=== PATIENT | female | born 1955 | race African-American/Black ===

== ENCOUNTER 2018-11-11 11:00 | Inpatient (IN) | payer OTHER ==
[2018-11-11 13:28] LABS: ADD MAN DIFF? NO
[2018-11-11 13:38] LABS: BASOPHILS % 0.3 % (0.0-2.0); EOSINOPHILS # 0.1 10^3/ul (0.0-0.5); EOSINOPHILS % 0.5 % (0.0-7.0); HEMATOCRIT 35.8 % (37.0-47.0); HEMOGLOBIN 10.8 g/dl (12.0-16.0); LYMPHOCYTES # 2.2 10^3/ul (0.8-2.9); LYMPHOCYTES % 22.1 % (15.0-51.0); MEAN CORPUSCULAR HGB CONC 30.2 g/dl (32.0-37.0); MEAN CORPUSCULAR VOLUME 89.5 fl (82.0-101.0); MEAN PLATELET VOLUME 11.8 fl (7.4-10.4); MONOCYTE # 0.8 10^3/ul (0.3-0.9); MONOCYTES % 7.8 % (0.0-11.0); NEUTROPHIL # 6.9 10^3/ul (1.6-7.5); NEUTROPHILS % 68.9 % (39.0-77.0); PLATELET COUNT 229 10^3/UL (140-415); RED CELL DISTRIBUTION WIDTH 13.1 % (11.5-14.5)
[2018-11-11 15:51] LABS: POTASSIUM 7.3 mmol/L (3.5-5.1)
[2018-11-11 16:28] LABS: ANION GAP 7 (5-13); BLOOD UREA NITROGEN 36 mg/dl (7-20); CARBON DIOXIDE 21 mmol/L (21-31); CHLORIDE 113 mmol/L (97-110); CREATININE 1.48 mg/dl (0.44-1.00); Estimated GFR 43 mL/min (>60); GLUCOSE 85 mg/dl (70-220); POTASSIUM 7.3 mmol/L (3.5-5.1); SODIUM 141 mmol/L (135-144)
[2018-11-11 16:29] LABS: B-TYPE NATRIURETIC PEPTIDE 45 PG/ML (0-125); CALCIUM 12.8 mg/dl (8.4-10.2); TROPONIN-I < 0.012 ng/ml (0.000-0.120)
[2018-11-11] MEDS: DEXTROSE 50% 50 ML SYRINGE IV ×2 (16:29→19:39)
[2018-11-11] MEDS: NA BICARBONATE 8.4% 50 ML SYG IV ×2 (16:29→19:39)
[2018-11-11] MEDS: CA CHLORIDE 10% 10 ML SYRINGE IV (16:29)
[2018-11-11] MEDS: SODIUM POLYSTYRENE 15 GM KIT (POWDER + SORBITOL) PO (16:30)
[2018-11-11] MEDS: INSULIN REGULAR, HUMAN 100 UNIT/1 ML 3ML VIAL IVP ×2 (16:31→19:40)
[2018-11-11] MEDS: NA POLYST SULFON 15 GM/60 ML BTL PO ×2 (16:37→19:51)
[2018-11-11] MEDS: IODIXANOL LOCM 100 ML BTL (16:39)
[2018-11-11] MEDS: SOD CHLORIDE 0.9% 100 ML (16:39)
[2018-11-11 17:51] LABS: ANION GAP 6 (5-13); BLOOD UREA NITROGEN 36 mg/dl (7-20); CARBON DIOXIDE 24 mmol/L (21-31); CHLORIDE 113 mmol/L (97-110); Estimated GFR 43 mL/min (>60); GLUCOSE 54 mg/dl (70-220); SODIUM 143 mmol/L (135-144)
[2018-11-11 18:00] LABS: POTASSIUM 6.7 mmol/L (3.5-5.1)
[2018-11-11] MEDS ORDERED: DEXTROSE 50% 50 ML SYRINGE IV (19:00)
[2018-11-11] MEDS ORDERED: ACETAMINOPHEN 325 MG TAB PO ×2 (20:00→20:30)
[2018-11-11] MEDS ORDERED: ONDANSETRON 4 MG INJ IV (20:00)
[2018-11-11] MEDS: SOD CHLORIDE 0.9% 1,000 ML IV (20:00)
[2018-11-11] MEDS ORDERED: NACL 0.9% 3 ML SYG IV (20:30)
[2018-11-11] MEDS ORDERED: NITROGLYCERIN (SL) 0.4 MG TAB SL (20:30)
[2018-11-11] MEDS ORDERED: DOCUSATE SODIUM 100 MG CAP PO (20:30)
[2018-11-11] MEDS ORDERED: BISACODYL (EC) 5 MG TAB PO (20:30)
[2018-11-11 21:00] LABS: ADD UMIC NO; UR ASCORBIC ACID NEGATIVE (NEGATIVE); UR BILIRUBIN (Dip) NEGATIVE (NEGATIVE); UR BLOOD (Dip) NEGATIVE (NEGATIVE); UR CLARITY CLEAR (CLEAR); UR COLOR YELLOW (YELLOW); UR GLUCOSE (Dip) 1+ mg/dL (NEGATIVE); UR KETONES (Dip) NEGATIVE (NEGATIVE); UR LEUKOCYTE ESTERASE (Dip) NEGATIVE Leu/ul (NEGATIVE); UR NITRITE (Dip) NEGATIVE (NEGATIVE); UR SPECIFIC GRAVITY (Dip) 1.055 (1.003-1.030); UR TOTAL PROTEIN (Dip) NEGATIVE (NEGATIVE); UR UROBILINOGEN (Dip) NEGATIVE (NEGATIVE)
[2018-11-11 22:27] LABS: ANION GAP 11 (5-13); BLOOD UREA NITROGEN 39 mg/dl (7-20); CARBON DIOXIDE 19 mmol/L (21-31); CHLORIDE 116 mmol/L (97-110); CREATININE 1.65 mg/dl (0.44-1.00); Estimated GFR 38 mL/min (>60); GLUCOSE 143 mg/dl (70-220); POTASSIUM 5.4 mmol/L (3.5-5.1); SODIUM 146 mmol/L (135-144)
[2018-11-11 22:28] LABS: ALANINE AMINOTRANSFERASE 29 IU/L (13-69); ALBUMIN 4.4 g/dl (3.3-4.9); ALKALINE PHOSPHATASE 89 IU/L (42-121); ASPARTATE AMINO TRANSFERASE 35 IU/L (15-46); BILIRUBIN,INDIRECT 0.5 mg/dl (0-1.1); BILIRUBIN,TOTAL 0.5 mg/dl (0.2-1.3); LIPASE 140 U/L (23-300); TOTAL PROTEIN 8.1 g/dl (6.1-8.1)
[2018-11-11 22:34] LABS: CALCIUM 13.8 mg/dl (8.4-10.2)
[2018-11-12 01:06] LABS: ANION GAP 5 (5-13); BLOOD UREA NITROGEN 37 mg/dl (7-20); CALCIUM 12.9 mg/dl (8.4-10.2); CARBON DIOXIDE 22 mmol/L (21-31); CHLORIDE 116 mmol/L (97-110); CREATININE 1.59 mg/dl (0.44-1.00); Estimated GFR 40 mL/min (>60); GLUCOSE 126 mg/dl (70-220); POTASSIUM 5.8 mmol/L (3.5-5.1); SODIUM 143 mmol/L (135-144)
[2018-11-12 02:58] LABS: ANION GAP 7 (5-13); BLOOD UREA NITROGEN 40 mg/dl (7-20); CARBON DIOXIDE 22 mmol/L (21-31); CHLORIDE 115 mmol/L (97-110); CREATININE 1.57 mg/dl (0.44-1.00); Estimated GFR 41 mL/min (>60); GLUCOSE 104 mg/dl (70-220); SODIUM 144 mmol/L (135-144)
[2018-11-12 03:47] LABS: CALCIUM 13.1 mg/dl (8.4-10.2)
[2018-11-12] MEDS: SOD CHLORIDE 0.9% 1,000 ML IV ×4 (04:00→22:27)
[2018-11-12] MEDS: SODIUM POLYSTYRENE 15 GM KIT (POWDER + SORBITOL) PO (04:29)
[2018-11-12] MEDS: ALBUTEROL 0.083% (NEB) 2.5 MG/3 ML AMP HHN (04:38)
[2018-11-12] MEDS: CALCITONIN SALMON 400 UNITS INJ SC (04:40)
[2018-11-12 05:26] LABS: ADD MAN DIFF? NO
[2018-11-12 05:42] LABS: BASOPHILS % 0.3 % (0.0-2.0); EOSINOPHILS # 0.2 10^3/ul (0.0-0.5); EOSINOPHILS % 2.2 % (0.0-7.0); HEMATOCRIT 36.2 % (37.0-47.0); HEMOGLOBIN 11.2 g/dl (12.0-16.0); LYMPHOCYTES # 2.2 10^3/ul (0.8-2.9); LYMPHOCYTES % 27.9 % (15.0-51.0); MEAN CORPUSCULAR HEMOGLOBIN 27.5 pg (29.0-33.0); MEAN CORPUSCULAR HGB CONC 30.9 g/dl (32.0-37.0); MEAN CORPUSCULAR VOLUME 88.9 fl (82.0-101.0); MEAN PLATELET VOLUME 11.8 fl (7.4-10.4); MONOCYTE # 0.7 10^3/ul (0.3-0.9); MONOCYTES % 9.5 % (0.0-11.0); NEUTROPHIL # 4.7 10^3/ul (1.6-7.5); NEUTROPHILS % 59.8 % (39.0-77.0); PLATELET COUNT 219 10^3/UL (140-415); RED BLOOD COUNT 4.07 10^6/ul (4.20-5.40); RED CELL DISTRIBUTION WIDTH 13.2 % (11.5-14.5)
[2018-11-12 05:42] LABS: WHITE BLOOD COUNT 7.8 10^3/ul (4.8-10.8)
[2018-11-12 06:08] LABS: ANION GAP 8 (5-13); BLOOD UREA NITROGEN 39 mg/dl (7-20); CARBON DIOXIDE 24 mmol/L (21-31); CHLORIDE 113 mmol/L (97-110); CREATININE 1.59 mg/dl (0.44-1.00); Estimated GFR 40 mL/min (>60); GLUCOSE 97 mg/dl (70-220); POTASSIUM 5.7 mmol/L (3.5-5.1); SODIUM 145 mmol/L (135-144)
[2018-11-12 06:33] LABS: ALBUMIN 4.2 g/dl (3.3-4.9); ANION GAP 4 (5-13); BLOOD UREA NITROGEN 37 mg/dl (7-20); CALCIUM 12.9 mg/dl (8.4-10.2); CARBON DIOXIDE 25 mmol/L (21-31); CHLORIDE 116 mmol/L (97-110); CREATININE 1.59 mg/dl (0.44-1.00); GLUCOSE 96 mg/dl (70-220); PHOSPHORUS 3.4 mg/dl (2.5-4.9); POTASSIUM 5.8 mmol/L (3.5-5.1); SODIUM 145 mmol/L (135-144)
[2018-11-12 06:34] LABS: CHOL/HDL RATIO 7.3 RATIO; CHOLESTEROL 219 mg/dl (100-200); FREE T3 2.87 pg/ml (2.77-5.27); HDL CHOLESTEROL 30 mg/dl (35-98); LDL CHOLESTEROL,CALCULATED 167 mg/dl; TRIGLYCERIDES 110 mg/dl (0-149)
[2018-11-12 06:34] LABS: MAGNESIUM 1.4 mg/dl (1.7-2.5)
[2018-11-12 06:47] LABS: HEPATITIS B SURFACE ANTIGEN NEGATIVE (NEGATIVE)
[2018-11-12 06:51] LABS: HEMOGLOBIN A1C 5.7 % (0-5.9)
[2018-11-12 07:05] LABS: CALCIUM 13.3 mg/dl (8.4-10.2); HEPATITIS C VIRAL ANTIBODY NEGATIVE (NEGATIVE)
[2018-11-12 07:06] LABS: HEPATITIS B SURFACE ANTIBODY POSITIVE (NEGATIVE)
[2018-11-12] MEDS: AMLODIPINE 10 MG TAB PO (08:33)
[2018-11-12] MEDS ORDERED: hydrALAzine 20 MG INJ IV (10:00)
[2018-11-12 13:25] LABS: ADD UMIC NO; UR ASCORBIC ACID NEGATIVE (NEGATIVE); UR BILIRUBIN (Dip) NEGATIVE (NEGATIVE); UR BLOOD (Dip) NEGATIVE (NEGATIVE); UR CLARITY CLEAR (CLEAR); UR COLOR YELLOW (YELLOW); UR GLUCOSE (Dip) NEGATIVE (NEGATIVE); UR KETONES (Dip) NEGATIVE (NEGATIVE); UR LEUKOCYTE ESTERASE (Dip) NEGATIVE Leu/ul (NEGATIVE); UR NITRITE (Dip) NEGATIVE (NEGATIVE); UR SPECIFIC GRAVITY (Dip) 1.026 (1.003-1.030); UR TOTAL PROTEIN (Dip) NEGATIVE (NEGATIVE); UR UROBILINOGEN (Dip) NEGATIVE (NEGATIVE)
[2018-11-12] MEDS: MAGNESIUM SULFATE 2 GM/50 ML 50 ML IVPB (13:28)
[2018-11-12 13:44] LABS: SODIUM,URINE RANDOM 100 mmol/L (30-90)
[2018-11-12 13:44] LABS: CREATININE,URINE RANDOM 104.22 mg/dl (20-320)
[2018-11-12 14:44] LABS: ANION GAP 8 (5-13); BLOOD UREA NITROGEN 36 mg/dl (7-20); CALCIUM 12.3 mg/dl (8.4-10.2); CARBON DIOXIDE 24 mmol/L (21-31); CHLORIDE 115 mmol/L (97-110); Estimated GFR 43 mL/min (>60); GLUCOSE 120 mg/dl (70-220); POTASSIUM 5.1 mmol/L (3.5-5.1); SODIUM 147 mmol/L (135-144)
[2018-11-13] MEDS: SOD CHLORIDE 0.9% 1,000 ML IV ×2 (04:00→07:46)
[2018-11-13 05:29] LABS: ADD MAN DIFF? NO
[2018-11-13 05:38] LABS: BASOPHILS % 0.4 % (0.0-2.0); EOSINOPHILS # 0.3 10^3/ul (0.0-0.5); EOSINOPHILS % 4.5 % (0.0-7.0); HEMATOCRIT 32.4 % (37.0-47.0); HEMOGLOBIN 10.1 g/dl (12.0-16.0); LYMPHOCYTES # 2.1 10^3/ul (0.8-2.9); LYMPHOCYTES % 27.8 % (15.0-51.0); MEAN CORPUSCULAR HEMOGLOBIN 27.7 pg (29.0-33.0); MEAN CORPUSCULAR HGB CONC 31.2 g/dl (32.0-37.0); MEAN CORPUSCULAR VOLUME 88.8 fl (82.0-101.0); MEAN PLATELET VOLUME 11.6 fl (7.4-10.4); MONOCYTE # 0.7 10^3/ul (0.3-0.9); MONOCYTES % 9.6 % (0.0-11.0); NEUTROPHIL # 4.3 10^3/ul (1.6-7.5); NEUTROPHILS % 57.4 % (39.0-77.0); PLATELET COUNT 198 10^3/UL (140-415); RED BLOOD COUNT 3.65 10^6/ul (4.20-5.40)
[2018-11-13 05:38] LABS: WHITE BLOOD COUNT 7.5 10^3/ul (4.8-10.8)
[2018-11-13 06:10] LABS: PHOSPHORUS 2.8 mg/dl (2.5-4.9)
[2018-11-13 06:10] LABS: MAGNESIUM 1.7 mg/dl (1.7-2.5)
[2018-11-13 06:21] LABS: ANION GAP 3 (5-13); BLOOD UREA NITROGEN 27 mg/dl (7-20); CALCIUM 11.4 mg/dl (8.4-10.2); CARBON DIOXIDE 22 mmol/L (21-31); CHLORIDE 118 mmol/L (97-110); CREATININE 1.23 mg/dl (0.44-1.00); Estimated GFR 54 mL/min (>60); GLUCOSE 107 mg/dl (70-220); POTASSIUM 4.9 mmol/L (3.5-5.1); SODIUM 143 mmol/L (135-144)
[2018-11-13] MEDS: AMLODIPINE 10 MG TAB PO (07:46)
[2018-11-13 14:53] LABS: PROTEIN, TOTAL 7.8 g/dL (6.1-8.1)
[2018-11-13 17:56] LABS: PTH CALCIUM 12.2 mg/dL (8.6-10.4)
[2018-11-13 23:23] LABS: ALBUMIN 4.1 g/dL (3.8-4.8); ALPHA-1-GLOBULINS 0.3 g/dL (0.2-0.3); ALPHA-2-GLOBULINS 0.8 g/dL (0.5-0.9); BETA 2 GLOBULINS 0.5 g/dL (0.2-0.5); BETA GLOBULINS 0.5 g/dL (0.4-0.6); GAMMA GLOBULINS 1.6 g/dL (0.8-1.7)
[2018-11-14 07:51] LABS: PTH INTACT 259 pg/mL (14-64)
[2018-11-14 16:25] LABS: CREATININE, RANDOM URINE 102 mg/dL (20-275); CREATININE, RANDOM URINE 148 mg/dL (20-275); MICROALBUMIN 0.6 mg/dL; MICROALBUMIN/CREATININE RATIO 6 (<30); PROTEIN/CREATININE RATIO 61 mg/g creat (21-161)
[2018-11-14 21:48] LABS: ALDOSTERONE 6 ng/dL
[2018-11-15 16:12] LABS: RENIN, PLASMA 7.97 ng/mL/h (0.25-5.82)
== END 2018-11-13 11:50 | disposition home or self-care (01) | DRG 641 ==
LOC: 6WM 11-12 03:08 → E/R 11:00 → 6WM 19:46
PROVIDERS: Family Medicine
DX: E87.5 Hyperkalemia (principal); N17.9 Acute kidney failure, unspecified; Z68.41 Body mass index [BMI] 40.0-44.9, adult; E83.52 Hypercalcemia; N18.9 Chronic kidney disease, unspecified; E66.01 Morbid (severe) obesity due to excess calories; K74.60 Unspecified cirrhosis of liver; I12.9 Hypertensive chronic kidney disease with stage 1 through stage 4 chronic kidney disease, or unspecified chronic kidney disease; H91.90 Unspecified hearing loss, unspecified ear; R55 Syncope and collapse
CPT/HCPCS: 36415; 71275; 74176; 76700; 80048; 80061; 80069; 80076; 81003; 82043; 82088; 82306; 82570; 82652; 82962; 83036; 83690; 83735; 83880; 83970; 84100; 84132; 84155; 84156; 84165; 84166; 84244; 84300; 84439; 84443; 84481; 84484; 85025; 86320; 86325; 86706; 86708; 86709; 86803; 87340; 93005; 93306; 93880; 94664; 96374; 96375; 96376; 99291-25